=== PATIENT | male | born 1980 | race Caucasian/White ===

== ENCOUNTER 2016-06-26 19:15 | Inpatient (IN) | payer OTHER ==
[2016-06-26] MEDS ORDERED: SODIUM CHLORIDE 0.9% 1,000 ML IV STA (19:41)
[2016-06-26] MEDS ORDERED: ACETAMINOPHEN TAB 500 MG TAB PO STA (19:41)
[2016-06-26] MEDS ORDERED: IV VANCOMYCIN PER PHARMACY 1 EACH MISC MISCELLANE PRN (19:41)
--- NOTE | 2016-06-26 19:45 | ED ---
Skin/Abscess/FB HPI - General Chief complaint: Skin/Abscess/Foreign Body Stated complaint: Leg Pain/Poss abcess Time Seen by Provider: 06/26/16 19:34 Source: patient, RN notes reviewed Mode of arrival: ambulatory Limitations: no limitations - History of Present Illness Initial comments: 36-year-old male presents to the emergency department with a chief complaint of right thigh redness and swelling. Patient had an abscess of the ground about 5 days. Patient states he went to urgent care the draining abscess he was started on antibiotics. Patient states that today he woke up with enlarged right thigh from the knee all the way up the thigh increased tenderness. Patient states he is still getting some minimal drainage from the abscess. He states the pain is worse. Patient states he has felt hot and cold all day. Patient states it just started this morning and seems to be getting worse so he was concerned. Patient states that he called the urgent care He was referred here to be admitted for IV antibiotics. Patient states it is not currently having any other symptoms. Patient denies any recent shortness of breath, chest pain, back pain, abdominal pain, nausea vomiting, numbness or tingling, dysuria or hematuria, constipation or diarrhea, headaches or visual changes, or any other current symptoms. - Related Data Home Medications Medication Instructions Recorded Confirmed Cephalexin [Keflex] 500 mg PO TID 06/26/16 06/26/16 Ibuprofen [Motrin] 600 mg PO Q6HR PRN 06/26/16 06/26/16 Lisinopril-Hctz 10-12.5 mg 1 tab PO DAILY 06/26/16 06/26/16 [Zestoretic 10-12.5] Multivitamins, Thera [Multivitamin] 1 tab PO DAILY 06/26/16 06/26/16 [place]-3 Fatty Acids/Fish Oil [Fish 1 cap PO DAILY 06/26/16 06/26/16 Oil 1,000 mg Softgel] Allergies Allergy/AdvReac Type Severity Reaction Status Date / Time No Known Allergies Allergy Verified 06/26/16 19:48 Review of Systems ROS Statement: Those systems with pertinent positive or pertinent negative responses have been documented in the HPI. ROS Other: All systems not noted in ROS Statement are negative. Past Medical History Past Medical History: Hypertension History of Any Multi-Drug Resistant Organisms: None Reported Past Surgical History: Back Surgery, Hernia Repair, Orthopedic Surgery Additional Past Surgical History / Comment(s): vasectomy Past Psychological History: No Psychological Hx Reported Smoking Status: Never smoker Past Alcohol Use History: Occasional Past Drug Use History: None Reported General Exam - General Exam Comments Initial Comments: General: The patient is awake and alert, in no distress, and does not appear acutely ill. Neck: The neck is supple, there is no tenderness. Cardiovascular: There is a regular rate and rhythm. No murmur, rub or gallop is appreciated. Respiratory: Lungs are clear to auscultation, respirations are non-labored, breath sounds are equal. No wheezes, stridor, rales, or rhonchi. Musculoskeletal: Sensation intact to plus pulses of her lower extremity. Full range of motion of right ankle right knee and right thigh. Patient does appear to have an abscess. Minimal drainage noted with associated erythema and induration to the anterior thigh from the top of the knee to the Thigh. It is tender to touch. Warmth to touch. Neurological: CN II-XII intact, There are no obvious motor or sensory deficits. Coordination appears grossly intact. Speech is normal. Skin: Skin is warm and dry and no rashes or lesions are noted. Psychiatric: Normal mood and affect. Limitations: no limitations Course Vital Signs 06/26/16 19:27 Temperature 99.0 F Pulse Rate 82 Respiratory 18 Rate Blood Pressure 162/78 O2 Sat by Pulse 97 Oximetry Medical Decision Making - Medical Decision Making 36-year-old male presents for right thigh cellulitis with failed outpatient treatment. The abscess was drained yesterday and is worsening patient does complain of hot and cold and does have a low-grade fever of 99 here. This and we'll start patient on IV antibiotics and fluids. We will admit patient for continued treatment with antibiotics and continued care. This time the abscess doesn't with minimal drainage. At this time patient's questions have been answered. This time the patient will be admitted. Disposition Clinical Impression: Abscess of right thigh, Cellulitis of right thigh, Failure of outpatient treatment Disposition: ADMITTED IP TO THIS HOSP Condition: Stable Referrals: Javier Mast MD [Primary Care Provider] - 1-2 days Decision Date: 06/26/16 Decision Time: 20:28
[2016-06-26] MEDS ORDERED: VANCOMYCIN 1,500 MG in SODIUM CHLORIDE 0.9% 250 ML IVPB STA (19:47)
[2016-06-26] MEDS ORDERED: ONDANSETRON 4 MG/2 ML VIAL IVP PRN (20:28)
[2016-06-26] MEDS ORDERED: IBUPROFEN 400 MG TAB PO PRN (20:28)
[2016-06-26] MEDS ORDERED: NALOXONE 0.4 MG/ML 1 ML VIAL IV PRN (20:28)
[2016-06-26] MEDS ORDERED: KETOROLAC 30 MG/ML 1 ML VIAL IVP PRN (20:28)
[2016-06-26] MEDS ORDERED: ACETAMINOPHEN TAB 325 MG TAB PO PRN (20:28)
[2016-06-26] MEDS ORDERED: HYDROcodone/APAP 5-325MG 1 EACH TAB PO PRN (20:28)
[2016-06-26 20:35] LABS: Basophils % (A) 0 %; CH 28.4; Eosinophils # (A) 0.1 k/uL (0-0.7); Eosinophils % (A) 1 %; HCT 40.7 % (39.0-53.0); HGB 13.8 gm/dL (13.0-17.5); Luc # (Auto) 0.21; Luc % (Auto) 2; Lymphocytes # (A) 1.6 k/uL (1.0-4.8); Lymphocytes % (A) 15 %; MCH 28.5 pg (25.0-35.0); MCHC 33.9 g/dL (31.0-37.0); MCV 83.9 fL (80.0-100.0); Mean Platelet Volume 7.3; Monocytes # (A) 0.5 k/uL (0-1.0); Monocytes % (A) 5 %; Neutrophils # (A) 8.2 k/uL (1.3-7.7); Neutrophils % (A) 77 %; RBC 4.85 m/uL (4.30-5.90); RDW 12.4 % (11.5-15.5); WBC 10.6 k/uL (3.8-10.6)
[2016-06-26] MEDS: SODIUM CHLORIDE 0.9% 1,000 ML IV SCH (20:35)
[2016-06-26 20:57] LABS: ALT 30 U/L (21-72); AST 20 U/L (17-59); Alkaline Phosphatase 74 U/L (38-126); Anion Gap 14 mmol/L; Blood Urea Nitrogen 18 mg/dL (9-20); Carbon Dioxide 24 mmol/L (22-30); Chloride 102 mmol/L (98-107); Glucose 146 mg/dL (74-99); Non-African American GFR(MDRD) >60 (>60 ml/min/1.73 sqM); Sodium 140 mmol/L (137-145); Total Bilirubin 0.6 mg/dL (0.2-1.3)
[2016-06-26 23:20] VITALS: BMI 28.1
[2016-06-27] MEDS: VANCOMYCIN 1,500 MG in SODIUM CHLORIDE 0.9% 250 ML IVPB SCH ×2 (06:27→18:19)
[2016-06-27] MEDS: SODIUM CHLORIDE 0.9% 1,000 ML IV SCH ×2 (06:27→19:17)
[2016-06-27 08:36] LABS: ALT 33 U/L (21-72); AST 18 U/L (17-59); Alkaline Phosphatase 68 U/L (38-126); Anion Gap 10 mmol/L; Blood Urea Nitrogen 13 mg/dL (9-20); Calcium 8.6 mg/dL (8.4-10.2); Carbon Dioxide 23 mmol/L (22-30); Chloride 109 mmol/L (98-107); Glucose 94 mg/dL (74-99); Non-African American GFR(MDRD) >60 (>60 ml/min/1.73 sqM); Potassium 4.4 mmol/L (3.5-5.1); Sodium 142 mmol/L (137-145); Total Bilirubin 0.6 mg/dL (0.2-1.3)
[2016-06-27] MEDS ORDERED: NON-FORMULARY DRUG (Omega-3 Fatty Acids/Fish Oil [Fish Oil 1,000 Mg Softgel] 1 CAP) PO SCH (09:00)
[2016-06-27] MEDS: LISINOPRIL-HCTZ 10-12.5 MG 1 EACH TAB PO SCH (09:50)
[2016-06-27] MEDS: MULTIVITAMINS, THERA 1 EACH TAB PO SCH (09:50)
--- NOTE | 2016-06-27 11:22 | HP ---
DATE OF ADMISSION: 06/26/2016 PRESENTING COMPLAINT: Right thigh abscess. HISTORY OF PRESENT ILLNESS: This is a very pleasant 36-year-old patient of Dr. Mast whose chronic stable medical conditions include hypertension. Patient is in good shape and health. Patient noticed a boil like area on his right thigh. Two days ago went to [facility] and they did express some pus, was given antibiotics to go home, which included Keflex. It continues to get worse, painful and patient decided to come to the ER, not much could be drained in the ER. Patient does shave his legs. He uses his own razor. Otherwise in good shape physically.( ) to around the thigh and is painful. REVIEW OF SYSTEMS: CONSTITUTIONAL: Tired. HEENT: None. RESPIRATORY: None. CARDIOVASCULAR: None. GASTROINTESTINAL: None. GENITOURINARY: None. MUSCULOSKELETAL: None. DERMATOLOGICAL: Above. LYMPHATICS: None. PSYCHIATRY: None. NEUROLOGICAL: None. PAST MEDICAL HISTORY: Hypertension. PAST SURGICAL HISTORY: Back surgery, hernia repair, vasectomy, left clavicle surgery. SOCIAL HISTORY: No smoking. Alcohol occasionally. 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 . FAMILY HISTORY: Reviewed, noncontributory to the presentation. HOME MEDICATIONS: 1. Fish oil 1 capsule p.o. daily. 2. Multivitamin 1 tablet p.o. daily. 3. Zestoretic 02/22.5 one tablet p.o. daily. 4. Motrin 600 mg q.6 p.r.n. 5. Keflex 500 mg p.o. t.i.d. Allergy to see HAY and PET DANDER. On examination, temperature 99, pulse 82, respiration 18, blood pressure 162/78, pulse ox 97% on room air. GENERAL APPEARANCE: Average build, sitting up in bed, not in distress. EYES: Pupils equal. Conjunctivae normal. HEENT: External appearance of nose and ears normal. Oral cavity normal. NECK: JVD not raised. Mass not palpable. RESPIRATORY: Effort normal. Lungs are clear. CARDIOVASCULAR: First and second sounds normal. No edema. ABDOMEN: Soft, nontender. Liver and spleen not palpable. LYMPHATIC: No lymph node palpable in the neck and axilla. PSYCHIATRY: Alert and oriented x3. Mood and affect normal. EXTREMITIES: Right thigh anteriorly in mid portion. Shows an area of induration. Redness has spread around the thigh. Right thigh is larger compared to size to the left thigh with significant surrounding tenderness. INVESTIGATIONS: White count 10.6, hemoglobin 13.8. Potassium 4. BUN and creatinine normal. ASSESSMENT: 1. Right thigh abscess in a patient who does shave his legs; having failed outpatient treatment with Keflex. Community acquired methicillin-resistant Staphylococcus aureus is a possibility. No other family members affected. 2. Essential hypertension. PLAN: Patient is put on vancomycin. Will get a surgical opinion. We will also start the patient on anti-inflammatory in addition to the vancomycin. Home medications resumed. Care was discussed with the patient. Will given Lovenox for DVT prophylaxis.
[2016-06-27 11:51] LABS: Basophils # (A) 0.1 k/uL (0-0.2); Basophils % (A) 0 %; CH 28.1; CHCM 32.6; Eosinophils # (A) 0.1 k/uL (0-0.7); Eosinophils % (A) 1 %; HDW 2.43; HGB 12.6 gm/dL (13.0-17.5); Luc # (Auto) 0.26; Luc % (Auto) 3; Lymphocytes # (A) 1.5 k/uL (1.0-4.8); Lymphocytes % (A) 14 %; MCH 28.1 pg (25.0-35.0); MCHC 32.4 g/dL (31.0-37.0); MCV 86.6 fL (80.0-100.0); Mean Platelet Volume 7.5; Monocytes # (A) 0.6 k/uL (0-1.0); Monocytes % (A) 6 %; Neutrophils % (A) 76 %; RDW 12.5 % (11.5-15.5); WBC 10.5 k/uL (3.8-10.6); WBC (Perox) 11.02
--- NOTE | 2016-06-27 13:12 | P.GSCN ---
History of Present Illness Consult date: 06/27/16 Reason for Consult: Right thigh abscess History of present illness: The patient is a 36-year-old gentleman who presented to the emergency department with a complaint of right thigh swelling and redness. The patient states that he has noted increased swelling in this area for approximately 6 days. He was seen in an urgent care area where there was an attempt to drain this but the swelling only became worse. The patient states that he had shaved this area of his leg and hemostasis were the abscess started. He has no prior history of any abscesses. The patient had a low-grade fever. He has been started on IV vancomycin. The patient's white blood cell count 10.5. Review of Systems - Constitutional Reports as per HPI - Cardiovascular Reports as per HPI - Gastrointestinal Reports as per HPI - Genitourinary Genitourinary Comment(s): Status post vasectomy - Musculoskeletal Reports as per HPI - Integumentary Reports as per HPI Past Medical History Past Medical History: Hypertension Additional Past Medical History / Comment(s): Patient is status post back surgery, hernia repair, orthopedic surgery, and vasectomy History of Any Multi-Drug Resistant Organisms: None Reported Past Surgical History: Back Surgery, Hernia Repair, Orthopedic Surgery Additional Past Surgical History / Comment(s): vasectomy,left clavicle surgery Past Anesthesia/Blood Transfusion Reactions: No Reported Reaction Past Psychological History: No Psychological Hx Reported Smoking Status: Never smoker Past Alcohol Use History: Occasional Past Drug Use History: None Reported - Past Family History Mother Additional Family Medical History / Comment(s): no family medical history that patient is aware of Medications and Allergies Home Medications Medication Instructions Recorded Confirmed Type Cephalexin [Keflex] 500 mg PO TID 06/26/16 06/26/16 History Ibuprofen [Motrin] 600 mg PO Q6HR PRN 06/26/16 06/26/16 History Lisinopril-Hctz 10-12.5 mg 1 tab PO DAILY 06/26/16 06/26/16 History [Zestoretic 10-12.5] Multivitamins, Thera [Multivitamin] 1 tab PO DAILY 06/26/16 06/26/16 History [place]-3 Fatty Acids/Fish Oil [Fish 1 cap PO DAILY 06/26/16 06/26/16 History Oil 1,000 mg Softgel] Allergies Allergy/AdvReac Type Severity Reaction Status Date / Time hay Allergy Dyspnea Uncoded 06/26/16 23:28 pet dander Allergy Dyspnea Uncoded 06/26/16 23:33 Surgical - Exam Vital Signs Temp Pulse Resp BP Pulse Ox 99.0 F 82 18 162/78 97 06/26/16 19:27 06/26/16 19:27 06/26/16 19:27 06/26/16 19:27 06/26/16 19:27 - General well developed, well nourished, no distress - Eyes normal ocular movement - ENT normal pinna, normal nares, no hearing loss - Neck no masses, trachea midline, no lymphadectomy, no venous distension - Respiratory normal expansion, normal respiratory effort, clear to auscultation - Cardiovascular Rhythm: regular - Abdomen Abdomen: soft, non tender, bowel sounds - Integumentary Patient's right thigh is somewhat swollen and erythematous in the central portion of the right thigh there is an area approximately 3 cm x 2 cm in size which is indurated with some dark eschar in the center of it. This appears to be fluctuant. Additionally should be noted there is a second area which appears to be a small pustule in the upper lateral right thigh Patient has some shotty right groin adenopathy Results - Labs 06/27/16 07:39 06/27/16 07:39 Abnormal Lab Results - Last 24 Hours (Table) 06/26/16 06/26/16 06/27/16 Range/Units 20:14 20:14 07:39 Hgb 12.6 L (13.0-17.5) gm/dL Neutrophils # 8.2 H 8.0 H (1.3-7.7) k/uL Chloride (98-107) mmol/L Glucose 146 H (74-99) mg/dL Total Protein (6.3-8.2) g/dL Albumin (3.5-5.0) g/dL 06/27/16 Range/Units 07:39 Hgb (13.0-17.5) gm/dL Neutrophils # (1.3-7.7) k/uL Chloride 109 H (98-107) mmol/L Glucose (74-99) mg/dL Total Protein 6.0 L (6.3-8.2) g/dL Albumin 3.3 L (3.5-5.0) g/dL Microbiology - Last 24 Hours (Table) 06/26/16 20:14 Wound Culture - Preliminary Thigh - Right Diabetes panel 06/26/16 06/27/16 Range/Units 20:14 07:39 Sodium 140 142 (137-145) mmol/L Potassium 4.0 4.4 (3.5-5.1) mmol/L Chloride 102 109 H (98-107) mmol/L Carbon Dioxide 24 23 (22-30) mmol/L BUN 18 13 (9-20) mg/dL Creatinine 1.02 0.98 (0.66-1.25) mg/dL Glucose 146 H 94 (74-99) mg/dL Calcium 9.0 8.6 (8.4-10.2) mg/dL AST 20 18 (17-59) U/L ALT 30 33 (21-72) U/L Alkaline Phosphatase 74 68 (38-126) U/L Total Protein 7.0 6.0 L (6.3-8.2) g/dL Albumin 4.1 3.3 L (3.5-5.0) g/dL Calcium panel 06/26/16 06/27/16 Range/Units 20:14 07:39 Calcium 9.0 8.6 (8.4-10.2) mg/dL Albumin 4.1 3.3 L (3.5-5.0) g/dL Pituitary panel 06/26/16 06/27/16 Range/Units 20:14 07:39 Sodium 140 142 (137-145) mmol/L Potassium 4.0 4.4 (3.5-5.1) mmol/L Chloride 102 109 H (98-107) mmol/L Carbon Dioxide 24 23 (22-30) mmol/L BUN 18 13 (9-20) mg/dL Creatinine 1.02 0.98 (0.66-1.25) mg/dL Glucose 146 H 94 (74-99) mg/dL Calcium 9.0 8.6 (8.4-10.2) mg/dL Adrenal panel 06/26/16 06/27/16 Range/Units 20:14 07:39 Sodium 140 142 (137-145) mmol/L Potassium 4.0 4.4 (3.5-5.1) mmol/L Chloride 102 109 H (98-107) mmol/L Carbon Dioxide 24 23 (22-30) mmol/L BUN 18 13 (9-20) mg/dL Creatinine 1.02 0.98 (0.66-1.25) mg/dL Glucose 146 H 94 (74-99) mg/dL Calcium 9.0 8.6 (8.4-10.2) mg/dL Total Bilirubin 0.6 0.6 (0.2-1.3) mg/dL AST 20 18 (17-59) U/L ALT 30 33 (21-72) U/L Alkaline Phosphatase 74 68 (38-126) U/L Total Protein 7.0 6.0 L (6.3-8.2) g/dL Albumin 4.1 3.3 L (3.5-5.0) g/dL Assessment and Plan Plan: Impression/plan: 1. 36-year-old with right thigh cellulitis/abscess 2. Recommend incision and drainage This and benefits have been discussed with the patient and his family and this was scheduled in the near future.
[2016-06-27] MEDS ORDERED: HEPARIN SODIUM,PORCINE 5,000 UNIT/ML 1 ML VIAL SQ ONE (15:46)
[2016-06-27] MEDS ORDERED: IV FLUID CONTINUATION 1,000 ML IV ONE (15:48)
[2016-06-27] MEDS ORDERED: DEXAMETHASONE SOD PHOSPHATE 10 MG/ML 1 ML VIAL IV ONE (16:52)
[2016-06-27] MEDS ORDERED: SCOPOLAMINE 1.5MG/72HR PATCH TRANSDERM ONE (16:52)
[2016-06-27] MEDS ORDERED: HYDROmorphone 1 MG/ML 1 ML SYRINGE IVP PRN (16:52)
[2016-06-27] MEDS ORDERED: ONDANSETRON 4 MG/2 ML VIAL IVP ONE (16:52)
[2016-06-27] MEDS ORDERED: LACTATED RINGERS 1,000 ML IV SCH (16:52)
[2016-06-27] MEDS ORDERED: KETOROLAC 30 MG/ML 1 ML VIAL ONE (17:08)
[2016-06-27] MEDS ORDERED: MIDAZOLAM 2 MG/2 ML VIAL ONE (17:08)
[2016-06-27] MEDS ORDERED: PROPOFOL 10 MG/ML 20 ML VIAL IV ONE (17:08)
[2016-06-27] MEDS ORDERED: fentaNYL (PF) 50 MCG/ML 2 ML AMP ONE (17:08)
[2016-06-27] MEDS ORDERED: LIDOCAINE 1% INJ 10MG/ML (20 ML MDV) ONE (17:08)
[2016-06-27] MEDS ORDERED: LIDOCAINE 1% (PF) 10MG/ML VIAL SQ ONE ×2 (17:26)
--- NOTE | 2016-06-27 17:36 | P.OP ---
Date of Procedure: 06/27/16 Preoperative Diagnosis: Abscess of right thigh Postoperative Diagnosis: Incision and drainage complex abscess of right thigh and second abscess lateral and superior right thigh Procedure(s) Performed: Incision and drainage of 2 abscesses right thigh Anesthesia: MAC Surgeon: Barbra Allison Estimated Blood Loss (ml): 5 IV fluids (ml): 400 Pathology: other (Cultures obtained abscess right thigh, abscess cavity wall sent to pathology) Condition: stable Disposition: PACU Indications for Procedure: Abscess right thigh, with a satellite abscess Operative Findings: two abscesses right thigh Description of Procedure: The patient is a 36-year-old gentleman who developed an abscess of his anterior right thigh with an attempted I&D at an outpatient clinic. He developed increasing cellulitis of his thigh and presented to the emergency room. He was admitted and started on vancomycin. Surgical consultation was obtained and it was felt that the area was not adequately drained. Patient was taken to the operating room and following sedation the right thigh was prepped and draped in a sterile fashion. 2 areas of concern were identified. The first was approximately 2 x 2 centimeters on the anterior thigh and it was somewhat fluctuant. The second was in the superior-lateral thigh and was approximately 2 cm in external surface size. It also appeared to be mildly fluctuant. The anterior thigh lesion was anesthetized using 1% lidocaine. An incision was made over the anterior surface of this removing eschar and entering the abscess cavity. The cavity was approximately 6 cm x 6 cm. The patient extended down onto the muscle. This was well irrigated. Purulent drainage was obtained and cultures were obtained of this. Been performing percent lidocaine was used to anesthetize the area of abscess in the superior-lateral 5. Incision was made over this. The cavity was approximately 5 x 4 cm in size. Purulent drainage was obtained. The well- lubricated. Both were packed using iodoform gauze. The patient tolerated the procedure in stable condition. All instrument and sponge counts were correct at the end of the case.
[2016-06-27] MEDS ORDERED: NALOXONE 0.4 MG/ML 1 ML VIAL IV PRN (17:37)
[2016-06-27] MEDS ORDERED: HYDROmorphone 1 MG/ML 1 ML SYRINGE IV PRN (17:37)
[2016-06-27] MEDS: NAPROXEN 250 MG TAB PO SCH ×2 (18:18→21:37)
[2016-06-27] MEDS: ENOXAPARIN 40 MG/0.4 ML SYRINGE SQ SCH (18:18)
[2016-06-27] MEDS: DEXTROSE 5%-0.45% NACL 1,000 ML IV SCH (19:17)
[2016-06-28] MEDS ORDERED: VANCOMYCIN TROUGH DUE 1 EACH MISC MISCELLANE ONE (05:00)
[2016-06-28] MEDS: DEXTROSE 5%-0.45% NACL 1,000 ML IV SCH ×2 (05:59→14:51)
[2016-06-28] MEDS: SODIUM CHLORIDE 0.9% 1,000 ML IV SCH ×3 (06:02→20:58)
[2016-06-28] MEDS: VANCOMYCIN 1,500 MG in SODIUM CHLORIDE 0.9% 250 ML IVPB SCH ×3 (06:02→23:23)
[2016-06-28 06:17] LABS: Anion Gap 11 mmol/L; Blood Urea Nitrogen 16 mg/dL (9-20); Calcium 9.1 mg/dL (8.4-10.2); Carbon Dioxide 23 mmol/L (22-30); Chloride 108 mmol/L (98-107); Glucose 134 mg/dL (74-99); Non-African American GFR(MDRD) >60 (>60 ml/min/1.73 sqM); Potassium 4.7 mmol/L (3.5-5.1); Sodium 142 mmol/L (137-145)
[2016-06-28 06:53] LABS: Basophils # (A) 0.1 k/uL (0-0.2); Basophils % (A) 1 %; CH 28.2; CHCM 32.6; Eosinophils % (A) 0 %; HDW 2.56; HGB 13.2 gm/dL (13.0-17.5); Luc # (Auto) 0.17; Luc % (Auto) 1; Lymphocytes % (A) 7 %; MCH 26.8 pg (25.0-35.0); MCHC 30.8 g/dL (31.0-37.0); Mean Platelet Volume 7.9; Monocytes # (A) 0.7 k/uL (0-1.0); Monocytes % (A) 5 %; Neutrophils # (A) 12.6 k/uL (1.3-7.7); Neutrophils % (A) 87 %; RBC 4.94 m/uL (4.30-5.90); RDW 12.5 % (11.5-15.5); WBC 14.4 k/uL (3.8-10.6); WBC (Perox) 12.46
[2016-06-28] MEDS: LISINOPRIL-HCTZ 10-12.5 MG 1 EACH TAB PO SCH (08:08)
[2016-06-28] MEDS: MULTIVITAMINS, THERA 1 EACH TAB PO SCH (08:08)
[2016-06-28] MEDS: ENOXAPARIN 40 MG/0.4 ML SYRINGE SQ SCH (08:09)
[2016-06-28] MEDS: HYDROcodone/APAP 5-325MG 1 EACH TAB PO PRN ×2 (08:42→19:55)
[2016-06-28] MEDS: NAPROXEN 250 MG TAB PO SCH ×2 (09:18→20:57)
--- NOTE | 2016-06-28 13:17 | P.PN ---
Subjective 36-year-old male being seen in the follow-up surgical visit on a host.day 1 incision and drainage complex abscess right thigh and second abscess lateral superior right thigh dressing at surgical site dry to the right thigh Patient reports pain medication effective for pain control has remained afebrile white counts morning 14.4 Objective - Vital Signs Vital signs: Vital Signs Temp 97.4 F L 06/28/16 07:00 Pulse 65 06/28/16 07:00 Resp 16 06/28/16 07:00 BP 142/77 06/28/16 07:00 Pulse Ox 97 06/28/16 07:00 Intake & Output 06/27/16 06/28/16 06/28/16 18:59 06:59 18:59 Intake Total 1490 1422 Output Total 5 Balance 1485 1422 Intake: IV 1250 1200 Sodium Chloride 0.9% 1, 800 1200 000 ml @ 100 mls/hr IV . Q10H ELICIA Rx#:[id number] Oral 240 222 Output: Estimated Blood Loss 5 Other: Voiding Method Toilet # Voids 2 2 - Exam Physical exam 36-year-old male appears in no acute distress Lungs essentially clear adequate air movement Heart S1-S2 audible regular Abdomen soft nontender reports no nausea vomiting Extremities no edema dressing to the right thigh dry - Labs CBC & Chem 7: 06/28/16 05:24 06/28/16 05:24 Labs: Abnormal Lab Results - Last 24 Hours (Table) 06/28/16 06/28/16 Range/Units 05:24 05:24 WBC 14.4 H (3.8-10.6) k/uL MCHC 30.8 L (31.0-37.0) g/dL Neutrophils # 12.6 H (1.3-7.7) k/uL Chloride 108 H (98-107) mmol/L Glucose 134 H (74-99) mg/dL Microbiology - Last 24 Hours (Table) 06/26/16 20:14 Gram Stain - Preliminary Thigh - Right Wound Culture - Preliminary Presumptive Staph aureus 06/27/16 17:34 Gram Stain - Preliminary Thigh - Right Wound Culture - Preliminary 06/27/16 17:34 Anaerobic Culture - Preliminary Thigh - Right 06/26/16 20:14 Blood Culture - Preliminary Blood No Growth after 24 hours Assessment and Plan Plan: Impression Incision and drainage complex abscess of the right thigh and second abscess lateral superior right thigh done on 27 of June History of essential hypertension Right thigh abscess failed outpatient treatment Present on admission right thigh pain due to cellulitis with an abscess failed outpatient treatment Plan Continue postop surgical care Pain control Follow-up on wound cultures DVT and GI prophylaxis Continue with IV vancomycin Consult infectious disease DrSebastian Cortez he recommendations for antibiotic The above dictated assessment and findings were discussed with Dr. Kev Laurent. Impression and the plan of care have been dictated as directed. Pura Hester nurse practitioner acting as a scribe for Dr. Hdz
--- NOTE | 2016-06-28 13:26 | CONS ---
DATE OF CONSULTATION: DATE OF SERVICE: 06/28/2016 REASON FOR CONSULTATION: Right thigh abscess. HISTORY OF PRESENT ILLNESS: The patient is a 36-year-old male who did develop pain, swelling and redness of his right anterior thigh area where the patient had noticed on Sunday the ljune. The patient to the [facility] where the patient did have drainage of the abscess and he was discharged home on p.o. Keflex and the said he was unable to fill the prescription on Sunday, however, took pill on Sunday morning. However, the patient noticed to have more swelling and redness of the right thigh area. The patient did call the physician at the urgent care who advised him to go to the ER. Patient complaining of pain to be sharp,7 to 8 out of 10 and no significant radiation with some drainage from it. The patient had been complaining of some rigors and chills; however, no high-grade fever has been accorded here. Subsequently evaluated by the ER physician and diagnosed with right thigh abscess and admitted to the hospital. The patient was taken to OR by Dr. Judy Laurent. The patient did have I&D of the complex abscess of the right thigh and second abscess lateral and superior right thigh. Culture has been obtained. The patient was started on vancomycin. I was asked to see the patient for further recommendation regarding antibiotic therapy. Patient currently denies any chest pain or shortness of breath or cough. No abdominal pain or any diarrhea. REVIEW OF SYSTEMS: CONSTITUTIONAL: Positive for weakness and chills. EYES: No complaint. ENT: No complaint. RESPIRATORY: No complaint. CARDIOVASCULAR: No complaint. GENITOURINARY: No complaint. GASTROINTESTINAL: No complaint. MUSCULOSKELETAL: As per HPI. INTEGUMENTARY: As per HPI. PSYCHOLOGIC: No complaint. ENDOCRINE: No complaint. NEUROLOGIC: No complaint. PAST MEDICAL HISTORY: Hypertension. PAST SURGICAL HISTORY: Back surgery, hernia repair, vasectomy. SOCIAL HISTORY: Denies smoking, drinking, or drug use. Works in a school system. ALLERGIES: No known drug allergies. Medications currently include the patient is on Tylenol, [place], dextrose, Lovenox, Zestoretic, Dilaudid, lactated Ringers, Theragran, Narcan, naproxen, Zofran, vancomycin. On examination, blood pressure is 142/77 with a pulse of 65, temperature 97.4. He is 97% on room air. General description is a middle-age male lying in bed in no distress. HEENT EXAMINATION: No pallor or scleral icterus. Oral mucous membrane is dry. NECK: Trachea central. There is no thyromegaly. LUNGS: Unlabored breathing. Clear to auscultation anteriorly. HEART: S1, S2. Regular rate and rhythm. ABDOMEN: Soft. No tenderness. EXTREMITIES: No edema of the feet. Examination of the right thigh wound was unpacked and no purulence was noticed at the base and no induration. Surrounding redness seemed to have improved. No foul smelling drainage. NEUROLOGICAL: The patient is awake, alert and oriented x3. Mood and affect normal. LABS: Hemoglobin is 13.2, white count is 14.4 with a BUN of 16, creatinine 1.0. Vanco trough was slightly low at 9.2. Cultures showing presumptive Staphylococcus aureus. DIAGNOSTIC IMPRESSION AND PLAN: Patient with right thigh abscess likely secondary to Staphylococcus aureus with a question of possible community associated methicillin-resistant Staphylococcus aureus failing outpatient I&D and oral antibiotic although he took only one pill, status post further debridement by Dr. Barbra Laurent with currently no evidence of any underlying residual abscess. PLAN: 1. Vancomycin pharmacy to dose with a target trough of 15 to continue. Dose has been adjusted by the pharmacy. 2. We will try to obtain a culture from the [facility] to help with adjust antibiotic therapy further. 3. Patient advised to stay in the hospital at least the next 24 to 48 hours that will prevent him from going home with IV antibiotic therapy. 4. Continue with Iodoform packing of the wound. 5. Will follow up on clinical condition and cultures to further adjust the medication if needed. Thank you for this consultation. Will follow this patient along with you. JUNE
--- NOTE | 2016-06-28 21:36 | PN ---
DATE OF SERVICE: 06/28/2016 PRESENTING COMPLAINT: Right thigh abscess. INTERVAL HISTORY: This is patient with right thigh abscess, status post I&D. Staph aureus is growing. Patient has got a dressing in place. Tolerating his diet. REVIEW OF SYSTEMS: Done for constitutional, cardiovascular, GI, pulmonary; relevant findings as above. Current medications include IV vancomycin. On examination, temperature 97.4, pulse 55, respiration 16, blood pressure 142/77, pulse 97% on room air. GENERAL APPEARANCE: Sitting up, comfortable. EYES: Pupils equal. Conjunctivae normal. NECK: JVD not raised. Mass not palpable. RESPIRATORY: Effort normal. Lungs are clear. CARDIOVASCULAR: First and second sounds normal. No edema. ABDOMEN: Soft, nontender. Liver and spleen not palpable. EXTREMITIES: Right ( ) dressing with some tenderness. INVESTIGATIONS: White count 14.4, hemoglobin 4.7. Culture is growing Staph aureus. ASSESSMENT: 1. Right thigh abscess in a patient with shaved legs status post incision and drainage suspect community acquired Methicillin-resistant Staph aureus, suspected. Continue vancomycin. 2. Essential hypertension. PLAN: Continue current medication and treatment plan. Care was discussed with the patient. Will follow.
[2016-06-29 07:17] LABS: Anion Gap 11 mmol/L; Blood Urea Nitrogen 16 mg/dL (9-20); Calcium 8.6 mg/dL (8.4-10.2); Carbon Dioxide 25 mmol/L (22-30); Chloride 108 mmol/L (98-107); Glucose 79 mg/dL (74-99); Non-African American GFR(MDRD) >60 (>60 ml/min/1.73 sqM); Potassium 4.3 mmol/L (3.5-5.1); Sodium 144 mmol/L (137-145)
[2016-06-29] MEDS: VANCOMYCIN 1,500 MG in SODIUM CHLORIDE 0.9% 250 ML IVPB SCH ×2 (10:27→18:26)
[2016-06-29] MEDS: ENOXAPARIN 40 MG/0.4 ML SYRINGE SQ SCH (10:28)
[2016-06-29] MEDS: LISINOPRIL-HCTZ 10-12.5 MG 1 EACH TAB PO SCH (10:29)
[2016-06-29] MEDS: MULTIVITAMINS, THERA 1 EACH TAB PO SCH (10:30)
--- NOTE | 2016-06-29 12:45 | P.PN ---
Subjective A 36-year-old being seen on rounds this morning sitting up in bed. The dressing removed from the right upper thigh packing in place there is a significant improvement less cellulitis less redness less swelling less tenderness no drainage noted on the dressing the right lateral superior thigh dressing removed packing in place scant amount of drainage noted serous. Less tenderness. Patient states the right thigh feels improved. Patient remains afebrile infectious disease Dr. Adamsed recommendations for antibiotics at the time of discharge waiting for finalization of the wound culture anticipating oral antibiotics Objective - Vital Signs Vital signs: Vital Signs Temp 97.6 F 06/29/16 07:00 Pulse 67 06/29/16 07:00 Resp 16 06/29/16 07:00 BP 145/70 06/29/16 07:00 Pulse Ox 96 06/29/16 07:00 Intake & Output 06/28/16 06/29/16 06/29/16 18:59 06:59 18:59 Intake Total 1100 120 Balance 1100 120 Intake: IV 850 Sodium Chloride 0.9% 1, 600 000 ml @ 100 mls/hr IV . Q10H [facility] Rx#:[id number] Vancomycin 1,500 mg In 250 Sodium Chloride 0.9% 250 ml @ 125 mls/hr IVPB Q12H [facility] Rx#:[id number] Oral 250 120 Other: Voiding Method Toilet # Voids 1 - Exam Physical exam 36-year-old male resting comfortably in bed does not appear in any acute distress pleasant cooperative Lungs essentially clear adequate air movement on room air Heart S1-S2 audible regular Abdomen soft no nausea no vomiting nondistended nontender Extremities upper extremities unremarkable the lower extremities dressings to the right upper extremity fine dry no pedal edema - Labs CBC & Chem 7: 06/28/16 05:24 06/29/16 06:43 Labs: Abnormal Lab Results - Last 24 Hours (Table) 06/29/16 Range/Units 06:43 Chloride 108 H (98-107) mmol/L Microbiology - Last 24 Hours (Table) 06/26/16 20:14 Blood Culture - Preliminary Blood No Growth after 48 hours 06/27/16 17:34 Gram Stain - Preliminary Thigh - Right Wound Culture - Preliminary Presumptive Staph aureus 06/26/16 20:14 Gram Stain - Preliminary Thigh - Right Wound Culture - Preliminary Presumptive Staph aureus Assessment and Plan Plan: Impression Incision and drainage complex abscess of the right thigh and second abscess lateral superior right thigh done on 27 of June History of essential hypertension Right thigh abscess failed outpatient treatment Present on admission right thigh pain due to cellulitis with an abscess failed outpatient treatment Plan Continue postop surgical care Pain control Follow-up on wound cultures DVT and GI prophylaxis Continue with IV vancomycin Continue with recommendations by infectious disease DrSebastian Cortez for antibiotic The above dictated assessment and findings were discussed with Dr. Kev Laurent. Impression and the plan of care have been dictated as directed. Pura Hester nurse practitioner acting as a scribe for Dr. Hdz
[2016-06-29] MEDS: HYDROcodone/APAP 5-325MG 1 EACH TAB PO PRN (16:53)
[2016-06-29] MEDS: NAPROXEN 250 MG TAB PO SCH ×2 (19:21→21:06)
--- NOTE | 2016-06-29 20:02 | PN ---
DATE OF SERVICE: 06/29/2016 PRESENTING COMPLAINT: Right thigh abscess. INTERVAL HISTORY: Patient is status post right thigh abscess, status post I&D, growing Staph aureus. Pain and swelling are going down. Dressing changes per Surgery. ( ) reviewed, including vancomycin. On examination, temperature 97.6, pulse 87, respiration 16, blood pressure 140/70, pulse ox 96% on room air. GENERAL APPEARANCE: Sitting up, comfortable. EYES: Pupils equal. Conjunctivae normal. NECK: JVD not raised. Mass not palpable. RESPIRATORY: Effort normal. Lungs are clear. CARDIOVASCULAR: First and second sounds normal. No edema. Right thigh wound with dressing in place. ( ) INVESTIGATIONS: Potassium 4.3. Cultures showing MSSA. ASSESSMENT: 1. Right thigh abscess secondary to shaving, status post incision and drainage from methicillin-susceptible Staphylococcus aureus. 2. Essential hypertension. PLAN: Patient is doing well. Continue current medication and treatment plan. Antibiotics per Infectious Disease. Will follow.
[2016-06-29] MEDS: SODIUM CHLORIDE 0.9% 1,000 ML IV SCH ×2 (23:03→23:04)
[2016-06-30] MEDS: ceFAZolin 2 GM in SODIUM CHLORIDE 0.9% 100 ML IVPB SCH ×2 (00:43→10:02)
[2016-06-30] MEDS: SODIUM CHLORIDE 0.9% 1,000 ML IV SCH (06:00)
[2016-06-30] MEDS ORDERED: VANCOMYCIN TROUGH DUE 1 EACH MISC MISCELLANE ONE (07:00)
[2016-06-30 07:52] LABS: Anion Gap 8 mmol/L; Blood Urea Nitrogen 16 mg/dL (9-20); Calcium 8.4 mg/dL (8.4-10.2); Carbon Dioxide 26 mmol/L (22-30); Chloride 108 mmol/L (98-107); Glucose 85 mg/dL (74-99); Non-African American GFR(MDRD) >60 (>60 ml/min/1.73 sqM); Potassium 4.5 mmol/L (3.5-5.1); Sodium 142 mmol/L (137-145)
--- NOTE | 2016-06-30 08:13 | PN ---
DATE OF SERVICE: 06/29/2016 Reason for follow-up is right thigh MSSA abscess. INTERVAL HISTORY: The patient is afebrile. He has been feeling better. The pain and swelling to right thigh has improved. Patient denies having any chest pain, shortness of breath or cough. No abdominal pain or any diarrhea. On examination, the blood pressure is 139/57 with pulse of 72, temperature 97.5. He is 95% on room air. General description is a middle-age male lying in lying in bed in no distress. RESPIRATORY SYSTEM: Unlabored breathing. Clear to auscultation anteriorly. HEART: S1, S2 regular rate and rhythm. ABDOMEN: Soft. No tenderness. RIGHT THIGH: Overall swelling and redness have improved. No drainage. LABS: BUN of 16, creatinine 1.11. Wound culture finalized with MSSA. DIAGNOSTIC IMPRESSION AND PLAN: Patient with methicillin susceptible Staphylococcus aureus right thigh abscess, status post drainage, failing outpatient Keflex. At this time, we will discontinue the vancomycin and start the patient on cefazolin 2 grams q.8. Re-evaluate the wound tomorrow. Hopefully, able to finish therapy with oral antibiotics. Continue supportive care.
--- NOTE | 2016-06-30 08:46 | P.PN ---
Subjective 36-year-old male being seen on rounds sitting up in bed states there is a significant improvement in the redness with an improvement in the tenderness involving the right upper thigh. Patient is status post incision and drainage of the right thigh abscess with the wound culture positive for MSSA. Infectious disease following patient. With recommendations for antibiotic therapy. The dressing removed from the right upper thigh. Scant amount of drainage noted on the dressing. There is a significant improvement in the tenderness with decreased redness around the site Objective - Vital Signs Vital signs: Vital Signs Temp 97.5 F L 06/30/16 02:00 Pulse 68 06/30/16 02:00 Resp 18 06/30/16 02:00 BP 106/62 06/30/16 02:00 Pulse Ox 96 06/30/16 02:00 Intake & Output 06/29/16 06/30/16 06/30/16 18:59 06:59 18:59 Intake Total 480 900 Balance 480 900 Intake: IV 900 Sodium Chloride 0.9% 1, 900 000 ml @ 100 mls/hr IV . Q10H [facility] Rx#:[id number] Oral 480 Other: Voiding Method Toilet Toilet # Voids 3 3 - Exam Physical exam 36-year-old male resting comfortably in bed does not appear in any acute distress pleasant cooperative Lungs essentially clear adequate air movement on room air no cough noted Heart S1-S2 audible regular no murmur denying chest pain Abdomen soft no nausea no vomiting nondistended nontender positive bowel tones Extremities upper extremities unremarkable the lower extremities dressings to the right upper thigh dry no pedal edema dressing removed 2 abscess right thigh. right medial thigh and the second abscess at the lateral superior right thigh both have packing in place no redness noted no tenderness no drainage noted - Labs CBC & Chem 7: 06/28/16 05:24 06/30/16 06:51 Labs: Abnormal Lab Results - Last 24 Hours (Table) 06/30/16 Range/Units 06:51 Chloride 108 H (98-107) mmol/L Microbiology - Last 24 Hours (Table) 06/26/16 20:14 Blood Culture - Preliminary Blood No Growth after 72 hours 06/27/16 17:34 Anaerobic Culture - Preliminary Thigh - Right 06/27/16 17:34 Gram Stain - Preliminary Thigh - Right Wound Culture - Final Staphylococcus aureus 06/26/16 20:14 Gram Stain - Final Thigh - Right Wound Culture - Final Staphylococcus aureus Assessment and Plan Plan: Impression Incision and drainage complex abscess of the right thigh and second abscess lateral superior right thigh done on 27 of June History of essential hypertension Right thigh abscess failed outpatient treatment Present on admission right thigh pain due to cellulitis with an abscess failed outpatient treatment Plan From a surgical perspective the patient is felt to be stable and appropriate to proceed with a discharge pending recommendations from infectious disease for antibiotics Continue postop surgical care Pain control Follow-up on wound cultures DVT and GI prophylaxis Continue with IV vancomycin Wound care reviewed with the patient and the spouse pack the 2 areas with iodoform and cover with gauze and wrapped with Kerlix to the right leg daily Follow-up with Dr. Hdz next week in the office If okayed with infectious disease patient may return to work on Sunday The above dictated assessment and findings were discussed with Dr. Kev Laurent. Impression and the plan of care have been dictated as directed. Pura Hester nurse practitioner acting as a scribe for Dr. Hdz
[2016-06-30] MEDS: NAPROXEN 250 MG TAB PO SCH (11:01)
[2016-06-30] MEDS: ENOXAPARIN 40 MG/0.4 ML SYRINGE SQ SCH (11:01)
[2016-06-30] MEDS: MULTIVITAMINS, THERA 1 EACH TAB PO SCH (11:02)
[2016-06-30] MEDS: LISINOPRIL-HCTZ 10-12.5 MG 1 EACH TAB PO SCH (11:02)
[2016-06-30 17:09] VITALS: BP 118/67; PULSE 61; RESP 16; TEMP 97.4
--- NOTE | 2016-06-30 18:30 | PN ---
DATE OF SERVICE: 06/30/2016 Reason for follow-up: Right thigh methicillin sensitive Staphylococcus aureus abscess and cellulitis. INTERVAL HISTORY: The patient is afebrile. Has been feeling better. The right thigh pain and swelling has improved. No drainage. Denies having any chest pain, shortness of breath, cough, abdominal pain or any diarrhea. On examination, blood pressure 106/52 with a pulse of 68, temperature 97.5. He is 96% on room air. General description is a middle-age male lying in bed in no distress. RESPIRATORY SYSTEM: Unlabored breathing. Clear to auscultation anteriorly. HEART: S1, S2 with regular rate and rhythm. ABDOMEN: Soft. No tenderness. Right thigh wound is currently decreased in size. No surrounding swelling, redness or drainage. LABS: BUN of 16, creatinine 1.07. Wound culture with MSSA. Blood cultures have been negative. DIAGNOSTIC IMPRESSION AND PLAN: Patient with right thigh Methicillin-susceptible Staph aureus abscess and cellulitis status post drainage times two. The patient shows overall clinical improvement. Currently on cefazolin that will be switched over to Keflex 500 mg q.6 hours for another 10 days along with the Aquacel silver packing of the wound and follow up in the office next week. Continue supportive care.
--- NOTE | 2016-07-01 11:24 | DS ---
DATE OF ADMISSION: 06/26/2016 DATE OF DISCHARGE: 06/30/2016 FINAL DIAGNOSES: 1. Acute right thigh abscess secondary to methicillin-susceptible Staphylococcus aureus secondary to shaving with a razor blade. 2. Essential hypertension. HOSPITAL COURSE: This patient presented with a right thigh abscess having failed outpatient treatment. I&D was carried out. Cultures grew MSSA. Doing much better the time of discharge. ON EXAM: Redness, tenderness greatly improved. CONSULTATIONS: Dr. Cortez from infectious disease; Dr. Miya Allison from general surgery. DISCHARGE MEDICATIONS: 1. Zestoretic 02/22.5 one tablet p.o. daily. 2. Multivitamin 1 tablet p.o. daily. 3. Fish oil of 1000 mg 1 capsule p.o. daily. 4. Keflex 500 mg q.6, 40 capsules. 5. Naproxen 500 mg p.o. b.i.d. 20 tablets. Wound dressing as per Dr. Miya Allison, which is pack to I&D right upper thigh with Iodoform and cover with gauze wrap right leg with Kerlix daily. Follow up with Dr. Mast on 07/04/16. Follow up with Dr. Miya Allison on 07/06/16; Dr. Cortez on 07/13/16. Patient has been given a work release form for a week.
== END 2016-06-30 15:45 | disposition home or self-care (01) | DRG 603 ==
LOC: EC 19:15 → 3SUR 20:11
PROVIDERS: ADMIT Hospitalist; ATTEND Hospitalist
PROC: 0J9L0ZX Drainage of Right Upper Leg Subcutaneous Tissue and Fascia, Open Approach, Diagnostic (ICD-10-PCS; principal; 2016-06-27 08:55)
DX: L02.415 Cutaneous abscess of right lower limb (principal); I10 Essential (primary) hypertension; L03.115 Cellulitis of right lower limb; B95.61 Methicillin susceptible Staphylococcus aureus infection as the cause of diseases classified elsewhere; Z79.899 Other long term (current) drug therapy
CPT/HCPCS: 36415; 80048; 80053; 80202; 83605; 85025; 87040; 87070; 87075; 87077; 87186; 87205; 88304; 88312; 96365; 96366; 99285